=== PATIENT | female | born 1970 | race African-American/Black ===

== ENCOUNTER 2016-09-27 15:59 | Emergency (ER) | payer MEDICAID, OTHER ==
[~2016-09-27] VITALS: Ht 160 cm; Wt 69.9 kg
[~2016-09-27 15:59] MED LIST: NKM; NORCO 5-325 TA1 EACH ORAL; TRAMADOL HCL50 MG ORAL
--- NOTE | 2016-09-27 16:46 | Diagnostic Imaging Report ---
Indication: PAIN Technique: 3 views of the left ankle Comparison: none Findings: No acute fractures. No dislocations. Joint spaces are preserved. Normal mineralization. No radiopaque foreign body. Impression: Negative
[2016-09-27] MEDS ORDERED: IBUPROFEN600 MG ORAL (16:55)
[2016-09-27 17:02] VITALS: BP 121/83
--- NOTE | 2016-09-27 17:52 | Emergency Room Report ---
History of Present Illness General Chief Complaint: Lower Extremity Injury Source: Patient (EVELIO HUDSON) Present Illness HPI The patient is a 45-year-old female presenting for left ankle pain. The patient states that she was walking with high heels findings prior and felt the left ankle buckle. Pain described as an 8/10 dull ache and does not radiate. Pain worse with walking. She denies any numbness or tingling. She denies previous injury to the area. She has tried Motrin at home which does help. She denies any other symptoms (EVELIO HUDSON) Allergies: Coded Allergies: No Known Allergies (Unverified , 07/02/13) Patient History Past Medical History: see triage record Pertinent Family History: none Last Menstrual Period: irregular cycle 1 year ago Now: No Reviewed Nursing Documentation: PMH: Agreed, PSxH: Agreed (EVELIO HUDSON) Nursing Documentation-PMH Past Medical History: No Stated History Hx Cardiac Problems: No - fibroid (EVELIO HUDSON) Review of Systems All Other Systems: negative except mentioned in HPI (EVELIO HUDSON) Physical Exam Vital Signs Date Time Temp Pulse Resp B/P Pulse Ox O2 Delivery O2 Flow Rate FiO2 09/27/16 16:16 97.5 77 16 121/83 98 Room Air Sp02 EP Interpretation: reviewed, normal General Appearance: no apparent distress, alert, GCS 15, non-toxic Head: normocephalic, atraumatic Eyes: bilateral eye PERRL, bilateral eye normal inspection ENT: hearing grossly normal, normal pharynx, no angioedema, normal voice Neck: full range of motion, supple/symm/no masses Musculoskeletal: normal range of motion, no calf tenderness, swelling - L lateral ankle, tender - L lateral ankle Neurologic: alert, oriented x3, responsive, motor strength/tone normal, sensory intact, normal gait, speech normal Psychiatric: judgement/insight normal, memory normal, mood/affect normal, no suicidal/homicidal ideation Skin: normal color, no rash, warm/dry, well hydrated Lymphatic: no adenopathy (EVELIO HUDSON) Procedures Splinting Splinting : Consent: Verbal Location: L ankle Pre-Made Type: CHAUNCEY wrap Pre-Proc Neuro Vasc Exam: normal Post-Proc Neuro Vasc Exam: normal Patient Tolerated: Well Complications: None (EVELIO HUDSON) Medical Decision Making PA Attestation Dr. Garcia is my supervising physician. Patient management was discussed with my supervising physician (EVELIO HUDSON) Diagnostic Impression: Primary Impression: Ankle sprain Qualified Codes: S93.402A - Sprain of unspecified ligament of left ankle, initial encounter ER Course The patient is a 45-year-old female presenting for left ankle pain. Ddx considered include but not limited to sprain/strain, fracture, contusion Physical exam: Vitals within normal limits. No apparent distress Left ankle: There is tenderness to palpation and edema over the left lateral malleolus. Full active range of motion. Sensation intact to light touch. Normal gait X-ray of the left ankle is unremarkable Left ankle placed in CHAUNCEY wrap. Pt refused crutches. ER precautions are given. Patient given prescription for Motrin and will follow up with primary care physician. (EVELIO HUDSON) ER Course Scribe documentation reviewed by me and is accurate. (aTy Garcia M.D.) Chest X-Ray Diagnostic Results Chest X-Ray Ordered: No (EVELIO HUDSON) Other X-Ray Diagnostic Results X-Ray ordered: L ankle # of Views/Limited Vs Complete: 3 View Interpretation: no fractures, no dislocation, no soft tissue swelling Indication: Pain Impression: No acute disease Date Electronically Signed: Sep 27, 2016 Time Electronically Signed: 17:50 Electronically Signed by: Dr. Garcia PA Scribe Text I am acting as scribe for my supervising physician. My supervising physician's interpretation of the L ankle xrays are there are no fractures, dislocations or soft tissue swelling. (EVELIO HUDSON) Last Vital Signs Date Time Temp Pulse Resp B/P Pulse Ox O2 Delivery O2 Flow Rate FiO2 09/27/16 17:02 97.5 16 121/83 98 Room Air 09/27/16 16:16 77 Status: improved (EVELIO HUDSON.ASong) Disposition: HOME, SELF-CARE Condition: Improved Scripts Ibuprofen* (MOTRIN*) 600 Mg Tablet 600 MG ORAL Q8H Y for For Pain, #30 TAB 0 Refills Prov: EVELIO HUDSON 09/27/16 Referrals: NOT CHOSEN [facility]/,REFERRING (PCP) Patient Instructions: Ankle Sprain Additional Instructions: I discussed my findings with the patient. All questions and concerns have been answered. Treatment and medication compliance have been addressed. I advised the patient that they need to follow up with PMD in 3-5 days. Return to ED if pain remains or worsens, numbness or tingling occurs, new rash is noticed, fever is noticed, or if needed for any reason. Patient verbalized understanding of discharge instructions. EVELIO HUDSON Sep 27, 2016 17:52 Tay Garcia M.D. Sep 28, 2016 15:31
== END 2016-09-27 17:05 | disposition home or self-care (01) ==
LOC: EMR 17:05
DX: S93.402A Sprain of unspecified ligament of left ankle, initial encounter (principal); X58.XXXA Exposure to other specified factors, initial encounter; Y93.01 Activity, walking, marching and hiking; Y99.9 Unspecified external cause status
CPT/HCPCS: 29540; 99283

== ENCOUNTER → 2017-05-16 | Emergency (ER) | payer MEDICAID, OTHER ==
[~2017-05-16] VITALS: Ht 160 cm; Wt 71.2 kg
[~2017-05-16] MED LIST changes: +IBUPROFEN600 MG ORAL; +Ketorolac 60mg Inj IM ONE; +LIDOCAINE700 M1 TP; +NAPROXEN375 M2 ORAL
[2017-05-16 14:44] VITALS: BP 123/79
--- NOTE | 2017-05-16 15:47 | Diagnostic Imaging Report ---
Indication: Right shoulder pain Technique: 3 views of the right shoulder Comparison: none Findings: No acute fractures. No dislocations. The joint spaces are preserved. Impression: Negative
--- NOTE | 2017-05-22 18:03 | Emergency Room Report ---
History of Present Illness General Chief Complaint: Pain Source: Patient, Medical Record Present Illness HPI Patient is a 46 year old female who presented after increased shoulder pain, sharp in nature, worse with movement. Patient denies any fever. She denied any weakness. Patient reports increased pain with abduction and some clicking of the joint. She denies trauma. Allergies: Coded Allergies: No Known Allergies (Unverified , 07/02/13) Patient History Past Medical History: see triage record Last Menstrual Period: menopause Reviewed Nursing Documentation: PMH: Agreed, PSxH: Agreed Nursing Documentation-PMH Past Medical History: No History, Except For Hx Cardiac Problems: No - fibroid Review of Systems All Other Systems: negative except mentioned in HPI Physical Exam Vital Signs Date Time Temp Pulse Resp B/P (MAP) Pulse Ox O2 Delivery O2 Flow Rate FiO2 05/16/17 14:12 98.2 91 18 123/79 98 Room Air General Appearance: well appearing, no apparent distress, alert, GCS 15, non- toxic Head: normocephalic, atraumatic ENT: hearing grossly normal, normal voice Neck: full range of motion, supple Respiratory: no respiratory distress, speaking full sentences Cardiovascular #1: normal inspection Musculoskeletal: no calf tenderness, decreased range of mation - decreased abduction greater than 90 degrees Neurologic: normal inspection, alert, oriented x3, responsive, automatic dispenser mechanic III-XII nml as tested, motor strength/tone normal, normal gait, oriented Psychiatric: mood/affect normal Skin: no rash Medical Decision Making Diagnostic Impression: Primary Impression: Shoulder pain, right ER Course Patient presented for right shoulder pain. Differential diagnosis included but was not limited to fracture, dislocation, tendonitis, sprain, rotator cuff injury among others. Patient pain appear to be chronic in nature. There is no erythema or concerning signs of septic joint. Patient was given non narcotic pain medications. Patient was advised to follow up with outpatient MRI if pain persisted. Patient was to return for any concerns or worsening of condition. Other X-Ray Diagnostic Results Other X-Ray Diagnostic Results : # of Views/Limited Vs Complete: 3 View Indication: Pain EP Interpretation: No Interpretation: no dislocation, no soft tissue swelling, no fractures Impression: No acute disease Last Vital Signs Date Time Temp Pulse Resp B/P (MAP) Pulse Ox O2 Delivery O2 Flow Rate FiO2 05/16/17 14:44 98.2 18 123/79 98 Room Air 05/16/17 14:12 91 Status: improved Disposition: HOME, SELF-CARE Condition: Stable Scripts Lidocaine (Lidocaine) 1 Each Adh..patch 700 MG TP DAILY, #1 PATCH Prov: Pablo Snyder 05/16/17 Referrals: WAYNE IBANEZ (PCP) Patient Instructions: Shoulder Pain Additional Instructions: follow up with primary care physician. May need MRI if persistent symptoms Pablo Snyder May 22, 2017 18:03
== END | disposition home or self-care (01) ==
LOC: EMR 15:48
DX: M25.511 Pain in right shoulder (principal)
CPT/HCPCS: 81025; 96372; 99283